=== PATIENT | female | born 1965 | race Two or more races ===

== ENCOUNTER 2018-04-18 03:11 | Emergency (ER) | payer BC ==
[~2018-04-18] VITALS: Ht 152.4 cm; Wt 59.0 kg
--- NOTE | 2018-04-18 03:20 | NUR ---
Pt ambulated in ER with stable gait with the c/o constant epigastric/generalized abdominal pain since 1400 04/17/18. Pt states that she felt nauseous, but denies vomiting and diarrhea. Pt denies SOB and CP. Safe environment implemented.
[2018-04-18] MEDS ORDERED: MORPHINE SULFATE 4 MG/1 ML DISP.SYRIN IV ONE (03:30)
[2018-04-18 03:40] LABS: BASOPHILS % (AUTO) 0.1 % (0.0-2.0); EOSINOPHILS % (AUTO) 0.1 % (0.0-7.0); HEMATOCRIT 38.1 % (31.2-41.9); HEMOGLOBIN 13.1 g/dL (10.9-14.3); LYMPHOCYTES # (AUTO) 0.5 K/uL (20.0-40.0); LYMPHOCYTES % (AUTO) 11.2 % (20.5-51.5); MEAN CORPUSCULAR HEMOGLOBIN 29.6 uug (24.7-32.8); MEAN CORPUSCULAR HGB CONC 34 g/dL (32.3-35.6); MEAN CORPUSCULAR VOLUME 86.2 fL (75.5-95.3); MONOCYTES # (AUTO) 0.3 K/uL (2.0-10.0); MONOCYTES % (AUTO) 6.6 % (0.0-11.0); NEUTROPHILS # (AUTO) 3.3 K/uL (1.8-8.9); PLATELET COUNT (AUTO) 191 K/uL (179-408); RED BLOOD CELL COUNT(AUTO) 4.42 MIL/uL (3.63-4.92); WHITE BLOOD COUNT (AUTO) 4.1 K/uL (3.8-11.8)
[2018-04-18] MEDS ORDERED: MORPHINE SULFATE 4 MG/1 ML DISP.SYRIN ONE (03:51)
[2018-04-18 03:53] LABS: BILIRUBIN,DIRECT 0.1 mg/dL (0.0-0.2); BILIRUBIN,TOTAL 0.4 mg/dL (0.2-1.0); CREATININE 0.8 mg/dL (0.6-1.3); POTASSIUM 3.9 mmol/L (3.5-5.1); TOTAL PROTEIN, SERUM 7.4 g/dL (6.4-8.2)
--- NOTE | 2018-04-18 05:35 | NUR ---
IV removed. Catheter intact and site benign. Pressure and 4x4 gauze applied to site. No bleeding noted. Patient discharged to home in stable conditon. Written and verbal after care instructions given. Patient verbalizes understanding of instructions. Patient instructed not to drive, per patient will drive her home. Patient ambulated out of ER with stable gait.
[2018-04-18 05:38] VITALS: BP 106/80
== END 2018-04-18 05:35 | disposition home or self-care (01) ==
LOC: ER 03:14
DX: N20.0 Calculus of kidney (principal)
CPT/HCPCS: 36415; 76700; 80048; 80076; 83690; 84484; 85025; 93005; 96374; 99284; J2270; 70030-TC; A4663

== ENCOUNTER 2018-07-23 12:10 | Emergency (ER) | payer BC ==
[~2018-07-23] VITALS: Ht 157.5 cm; Wt 61.2 kg
--- NOTE | 2018-07-23 12:24 | NUR ---
PATIENT WAS MSE BY DR KLINE.
--- NOTE | 2018-07-23 13:00 | NUR ---
DR KLINE MADE PATIENT AWARE OF TEST RESULTS.
[2018-07-23] MEDS: NEOMY/BACITRA/POLYMYXIN B OINT UD PACKET TP ONE ×2 (13:01→13:06)
--- NOTE | 2018-07-23 13:03 | NUR ---
Patient discharged to home in stable conditon. Written and verbal after care instructions given. Patient verbalizes understanding of instructions.
[2018-07-23 13:04] VITALS: BP 130/77
== END 2018-07-23 13:07 | disposition home or self-care (01) ==
LOC: ER 12:10
DX: S80.212A Abrasion, left knee, initial encounter (principal); S50.312A Abrasion of left elbow, initial encounter; W18.30XA Fall on same level, unspecified, initial encounter; Y93.89 Activity, other specified; Y92.89 Other specified places as the place of occurrence of the external cause; Y99.8 Other external cause status
CPT/HCPCS: 73080; 73590; A4663